=== PATIENT | male | born 1960 | race Caucasian/White ===

== ENCOUNTER 2017-02-15 10:16 | Emergency (ER) | payer BC ==
[~2017-02-15] VITALS: Ht 177.8 cm; Wt 93.3 kg
[2017-02-15 11:20] LABS: HEMATOCRIT 49.5 % (38.0-50.0); HEMOGLOBIN 17.2 G/DL (12.5-16.6); MCH 31.8 PG (29.0-34.0); MCHC 34.7 G/DL (30.0-36.0); MCV 91.5 FL (86-99); PLATELET COUNT 216 K/uL (156-360); RBC DIS.WIDTH-CV 12.5 % (11.8-14.6); RBC DIS.WIDTH-SD 42.1 % (39-53); RED BLOOD COUNT 5.41 M/uL (4.00-5.50)
[2017-02-15 11:31] LABS: CHLORIDE 104 mEq/L (99-109); POTASSIUM 4.8 mEq/L (3.7-5.4); SODIUM 139 mEq/L (136-147)
[2017-02-15 11:33] LABS: GLUCOSE 67 mg/dL (70-99)
[2017-02-15 11:37] LABS: CREATININE 1.2 mg/dL (0.6-1.3); GFR ESTIMATE (CALCULATED) > 59 mL/min/ (58.99-99999); UREA NITROGEN (BUN) 20 mg/dL (9-23)
[2017-02-15 13:58] LABS: TROP-I INTERPRETATION NEGATIVE; TROPONIN-I < 0.01 ng/mL (0.0-0.30)
[2017-02-15 15:21] LABS: TROP-I INTERPRETATION NEGATIVE; TROPONIN-I < 0.01 ng/mL (0.0-0.30)
[2017-02-15 16:07] VITALS: BP 137/95
== END 2017-02-15 16:07 | disposition home or self-care (01) ==
LOC: EME 10:16
PROVIDERS: Nurse Practitioner Family
DX: R06.00 Dyspnea, unspecified (principal); R07.89 Other chest pain
CPT/HCPCS: 71046; 80048; 84484; 85027; 93005; 99281; 99284